=== PATIENT | male | born 1960 ===

== ENCOUNTER 2023-05-29 10:28 | Emergency (ER) | payer SELFPAY ==
[2023-05-29 10:36] VITALS: BP 175/100; PULSE 68; RESP 17; TEMP 36.8; O2SAT 98
--- NOTE | 2023-05-29 10:45 | DI.CT_ITS ---
Exam(s) CT ABDOMEN PELVIS W EXAM: CT ABDOMEN PELVIS W CLINICAL HISTORY: Jaundice,. TECHNIQUE: Imaging Protocol: Axial computed tomography images with coronal and sagittal reformatted images were created and reviewed CONTRAST MATERIAL: Intravenous: Omnipaque 350 Contrast volume:100 ml Oral: yes / no COMPARISON: No exams were available for comparison FINDINGS: ABDOMEN and PELVIS: Lung Bases: No acute findings. Liver: Normal density. No measurable mass. Gallbladder and biliary tract: Not well distended. No wall thickening. No radiodense calculus. Mil d intrahepatic biliary dilation. No extrahepatic biliary dilatation. Common bile duct measures 5 mi llimeters. Pancreas: Normal density. No abnormal calcifications or inflammatory process. No evidence of mass. Spleen: Normal. Kidneys: Normal size, contour and axis. No radiodense stones. No obstructive uropathy. No suspicious masses seen. Adrenal glands: No masses seen. Vasculature: Abdominal aorta non-dilated. Soft tissues: Unremarkable. Bladder: Mild diffuse wall thickening. No calculi.No focal mass. Bowel: Small diverticulum of the descending duodenum. Mild sigmoid diverticulosis. Normal quantity of stool. No obstruction. No bowel wall thickening. Appendix normal. Peritoneal cavity: No ascites. No focal collection or mesenteric inflammatory response. Bones: Unremarkable for age. Reproductive organs: Prostate mildly enlarged. Lymph nodes: Unremarkable. IMPRESSION:: Minimal intrahepatic biliary dilatation. No extrahepatic biliary dilatation. No visib le gallstones , abnormal gallbladder distention or wall thickening. Findings called to DOROTA Lambert provider. RADIATION DOSE DELIVERED: 1,127.31mGy.cm Total DLP DATA REPOSITORY: All CT scans at this facility are submitted to the National Radiology Data Registry (NRDR) Dose Index Registry (DIR) with the [employer] (ACR). RADIATION OPTIMIZATION: All CT scans at this facility use at least one of these dose optimization te chniques: automated exposure control; mA and/or kV adjustment per patient size (includes targeted exa ms where dose is matched to clinical indication); or iterative reconstruction.
--- NOTE | 2023-05-29 10:49 | W.ED.GENAD ---
HPI General Mode of arrival: ambulatory. Date/Time Provider Initiated Documentation: 05/29/23 10:36. Limitations to Documentation: no limitations. Information obtained by: patient, RN notes reviewed and old records reviewed. HPI Narrative: 63-year-old male presents to the ER after with a chief complaint of jaundice and itching. Patient reports that he has had midepigastric gallbladder attacks on and off since October. They are associated with some jaundice. He reports that his significant other noticed that he was yellow this morning. He also is endorsing itchiness which began yesterday. He is a daily drinker. He reports that he does drink daily did not drink this morning. He also did not take his blood pressure medication losartan 100 mg this morning either. No other significant past medical history he denies any major surgeries lung problems diabetes or heart problems. He reports darkened urine, he reports a normal bowel movement this morning. His abdomen is soft, nontender on exam and nondistended. Related Data Home Medications Medication Instructions Recorded Confirmed losartan 100 mg tablet 100 mg PO DAILY 05/29/23 05/29/23 sucralfate 1 gram tablet (Carafate) 1 g PO QACHS GERD #30 tabs 05/29/23 triamcinolone acetonide 0.1 % 1 applic topical BID PRN itching 05/29/23 topical cream #30 grams Previous Rx's Medication Instructions Recorded sucralfate 1 gram tablet (Carafate) 1 g PO QACHS GERD #30 tabs 05/29/23 triamcinolone acetonide 0.1 % 1 applic topical BID PRN itching 05/29/23 topical cream #30 grams Allergies Allergy/AdvReac Type Severity Reaction Status Date / Time No Known Allergies Allergy Unverified 05/29/23 11:17 General Stated Complaint: Abd Prob EDGARDO: 3 Review of Systems All systems reviewed & are unremarkable except as noted in HPI and below Gastrointestinal Gastrointestinal: Reports as per HPI, Reports abdominal pain (denies currently) and Reports other (Jaundice) Genitourinary Genitourinary: Reports other (Dark urine) Integumentary/Breasts Skin/Breast: Reports pruritus, Reports rash and Reports jaundice Exam Const General: cooperative, comfortable, does not appear intoxicated and well hydrated Nutritional Appearance: obese Orientation: alert, awake and oriented x3 Eyes EOM: EOM intact bilaterally Resp Effort & Inspection: normal respiratory effort and able to speak in complete sentences Auscultation: clear to auscultation bilaterally Cardio Jugular venous pressure: no JVD Rate: regular rate Rhythm: regular rhythm Heart Sounds: S1 normal and S2 normal GI Inspection: no abdominal wall ecchymosis, obesity and no striae Palpation: soft (Non-tender) Skin General skin exam: elasticity normal, excoriation, jaundice and no mottling Rashes: rashes noted (Excoriations No surround erythema or induration) diffuse truncal Course Vital Signs Vital signs: Vital Signs Temperature 36.8 C 05/29/23 10:36 Pulse 68 05/29/23 10:36 Respiratory Rate 17 05/29/23 10:36 Blood Pressure 175/100 H 05/29/23 10:36 Pulse Oximetry 98 05/29/23 10:36 Temperature 36.8 C 05/29/23 10:36 Temperature Source Oral 05/29/23 10:36 Pulse 68 05/29/23 10:36 Respiratory Rate 17 05/29/23 10:36 Blood Pressure 175/100 H 05/29/23 10:36 Blood Pressure Position Supine 05/29/23 10:36 Pulse Oximetry 98 05/29/23 10:36 Oxygen Delivery Method Room Air 05/29/23 10:36 Oxygen Flow Rate 0 05/29/23 10:36 Pain Level 99 05/29/23 10:36 Lab/Test Results Lab/Test Results: Laboratory Tests Range/Units 05/29/23 10:34 Troponin I Cancelled Medical Decision Making 63-year-old male presents to the ER with a chief complaint of jaundice. Patient reports that he has had midepigastric gallbladder attacks on and off since October. They are associated with some jaundice. He reports that his significant other noticed that he was yellow this morning. He also is endorsing itchiness which began yesterday. He is a daily drinker. He reports that he does drink daily did not drink this morning. He also did not take his blood pressure medication losartan 100 mg this morning either. No other significant past medical history he denies any major surgeries lung problems diabetes or heart problems. He reports darkened urine, he reports a normal bowel movement this morning. His abdomen is soft, nontender on exam and nondistended. Workup ordered including CBC CMP, lipase, hepatitis panel, Ethyl alcohol, urinalysis CT abdomen pelvis with contrast. Differential diagnosis includes but not limited to hepatitis, cirrhosis, cholecystitis, gallstones, choledocholithiasis. Discussed results with patient and that my suspicions are heavily on alcoholic liver cirrhosis. He verbalized understanding. Will instruct him on stopping or decreasing alcohol severely, will give him some triamcinolone cream for the itching and rash, instruct him to take Maalox as needed for GERD in lieu of the omeprazole. Losartan should be okay for hepatic impairment. Patient does not wish to follow-up with [facility]. I will place him on a care management list. Discharge instructions discussed with family and patient by ED staff. Of note patient did state to me when I did discuss to stop drinking he did state I have a 12 pack of beer at home. Patient did decline referral to [facility]. Did give him some further GI resources clued in [place] and [facility]. This text was generated using [employer] system, please disregard any oddities of phrase or misspellings. Imaging Data Radiologic Study: Imaging: CT Scan Radiologist's impression: FINDINGS: ABDOMEN and PELVIS: Lung Bases: No acute findings. Liver: Normal density. No measurable mass. Gallbladder and biliary tract: Not well distended. No wall thickening. No radiodense calculus. Mild intrahepatic biliary dilation. No extrahepatic biliary dilatation. Common bile duct measures 5 millimeters. Pancreas: Normal density. No abnormal calcifications or inflammatory process. No evidence of mass. Spleen: Normal. Kidneys: Normal size, contour and axis. No radiodense stones. No obstructive uropathy. No suspicious masses seen. Adrenal glands: No masses seen. Vasculature: Abdominal aorta non-dilated. Soft tissues: Unremarkable. Bladder: Mild diffuse wall thickening. No calculi.No focal mass. Bowel: Small diverticulum of the descending duodenum. Mild sigmoid diverticulosis. Normal quantity of stool. No obstruction. No bowel wall thickening. Appendix normal. Peritoneal cavity: No ascites. No focal collection or mesenteric inflammatory response. Bones: Unremarkable for age. Reproductive organs: Prostate mildly enlarged. Lymph nodes: Unremarkable. IMPRESSION:: Minimal intrahepatic biliary dilatation. No extrahepatic biliary dilatation. No visible gallstones , abnormal gallbladder distention or wall thickening. Findings called to Madeline Sahni, ER provider. Lab Data Lab results reviewed: Yes I reviewed the patient's lab results. Labs: 05/29/23 10:52 Urine - Reflex from Ua Urine Culture - Pending Laboratory Tests Range/Units 05/29/23 05/29/23 05/29/23 10:34 10:45 10:48 WBC (4.4-10.8) 10^3/uL 5.62 RBC (4.36-5.78) 10^6/uL 4.65 Hgb (13.5-17.5) g/dL 14.6 Hct (40.0-50.0) % 44.4 MCV (80-95) fL 96 H MCH (27.0-33.0) pg 31.4 MCHC (32.0-36.0) % 32.9 RDW (11.8-14.1) % 12.9 Plt Count (130-400) 10^3/uL 262 MPV (8.0-11.0) fL 8.9 Immature Gran % 0.4 Neutrophils % 67.7 Lymphocytes % 20.6 Monocytes % 6.6 Eosinophils % 3.6 Basophils % 1.1 Nucleated RBC % (0.0-0.3) % 0.0 Absolute Neutrophils (1.2-6.7) 10^3/uL 3.81 Absolute Lymphocytes (1.2-3.4) 10^3/uL 1.16 L Absolute Monocytes (0.1-0.8) 10^3/uL 0.37 Absolute Eosinophils (0.0-0.7) 10^3/uL 0.20 Absolute Basophils (0.0-0.2) 10^3/uL 0.06 Sodium (136-145) mmol/L 136 Potassium (3.5-5.1) mmol/L 4.2 Chloride (98-107) mmol/L 100 Carbon Dioxide (21.0-32.0) mmol/L 26.3 Anion Gap (3-11) mmol/L 9.7 BUN (7-18) mg/dL 20 H Creatinine (0.70-1.30) mg/dL 1.5 H Est GFR (CKD-EPI 2020) (mL/min/1.73m2) 51.67 Glucose (74-106) mg/dL 129 H Calcium (8.5-10.1) mg/dL 10.2 H Magnesium (1.8-2.4) mg/dL 2.1 Total Bilirubin (0.2-1.0) mg/dL 8.3 H AST (15-37) U/L 121 H ALT (16-63) U/L 300 H Alkaline Phosphatase (46-116) U/L 738 H Troponin I Cancelled Total Protein (6.4-8.2) g/dL 8.1 Albumin (3.4-5.0) g/dL 3.2 L Lipase (16-77) U/L 67 Urine Color (Yellow) Urine Clarity (Clear) Urine pH (5-8) Ur Specific Calvert (1.005-1.025) Urine Protein (Negative) mg/dL Urine Ketones (Negative) mg/dL Urine Blood (Negative) Urine Nitrite (Negative) Urine Bilirubin (Negative) Urine Urobilinogen (Up to 0.2) mg/dL Ur Leukocyte Esterase (Negative) Urine RBC (0-2) HPF Urine WBC (0-5) HPF Ur Epithelial Cells (Negative) HPF Urine Crystals (Negative) HPF Urine Bacteria (Negative) HPF Urine Casts (Negative) LPF Urine Mucus (Negative) Urine Other (Negative) Ur Culture Indicated? Urine Glucose (Negative) mg/dL Ethyl Alcohol (<10) mg/dL 3.4 Add-On Test Request DONE Range/Units 05/29/23 05/29/23 10:51 10:52 WBC (4.4-10.8) 10^3/uL RBC (4.36-5.78) 10^6/uL Hgb (13.5-17.5) g/dL Hct (40.0-50.0) % MCV (80-95) fL MCH (27.0-33.0) pg MCHC (32.0-36.0) % RDW (11.8-14.1) % Plt Count (130-400) 10^3/uL MPV (8.0-11.0) fL Immature Gran % Neutrophils % Lymphocytes % Monocytes % Eosinophils % Basophils % Nucleated RBC % (0.0-0.3) % Absolute Neutrophils (1.2-6.7) 10^3/uL Absolute Lymphocytes (1.2-3.4) 10^3/uL Absolute Monocytes (0.1-0.8) 10^3/uL Absolute Eosinophils (0.0-0.7) 10^3/uL Absolute Basophils (0.0-0.2) 10^3/uL Sodium (136-145) mmol/L Potassium (3.5-5.1) mmol/L Chloride (98-107) mmol/L Carbon Dioxide (21.0-32.0) mmol/L Anion Gap (3-11) mmol/L BUN (7-18) mg/dL Creatinine (0.70-1.30) mg/dL Est GFR (CKD-EPI 2020) (mL/min/1.73m2) Glucose (74-106) mg/dL Calcium (8.5-10.1) mg/dL Magnesium (1.8-2.4) mg/dL Total Bilirubin (0.2-1.0) mg/dL AST (15-37) U/L ALT (16-63) U/L Alkaline Phosphatase (46-116) U/L Troponin I Total Protein (6.4-8.2) g/dL Albumin (3.4-5.0) g/dL Lipase (16-77) U/L Urine Color (Yellow) Yellow Urine Clarity (Clear) Clear Urine pH (5-8) 5.5 Ur Specific Calvert (1.005-1.025) 1.020 Urine Protein (Negative) mg/dL 100 H Urine Ketones (Negative) mg/dL Negative Urine Blood (Negative) Trace-lysed H Urine Nitrite (Negative) Negative Urine Bilirubin (Negative) Large H Urine Urobilinogen (Up to 0.2) mg/dL 0.2 Ur Leukocyte Esterase (Negative) Negative Urine RBC (0-2) HPF 0-2 Urine WBC (0-5) HPF Negative Ur Epithelial Cells (Negative) HPF Rare Urine Crystals (Negative) HPF Negative Urine Bacteria (Negative) HPF Moderate Urine Casts (Negative) LPF Negative Urine Mucus (Negative) Trace Urine Other (Negative) Negative Ur Culture Indicated? Yes Urine Glucose (Negative) mg/dL Negative Ethyl Alcohol (<10) mg/dL Add-On Test Request DONE Quality:SDOH Health Related Social Needs: No Data to Display PFSH All Active Problems (Updated 05/29/23 @ 12:52 by Madeline Sahni NP) Jaundice (Acute) Alcoholic cirrhosis of liver without ascites (Acute) Social History Smoking/Tobacco Use Status: Current every day Smoking risk assessment performed?: Yes Housing: house Do you feel safe at home: Yes Discharge Plan Disposition Patient Disposition: Home Condition: Stable Discharge Details Clinical Impression: Alcoholic cirrhosis of liver without ascites, Jaundice Primary Care Provider: Unknown,Unknown ED Provider: Madeline Sahni Home Meds and New Rx's Prescriptions: New sucralfate [Carafate] 1 gram tablet 1 g PO QACHS Qty: 30 0RF Rx Instructions: Please take before meals and at bedtime as needed. triamcinolone acetonide 0.1 % cream 1 applic topical BID PRN (Reason: itching) Qty: 30 0RF Rx Instructions: Apply twice daily as needed for itching do not use longer than 7-10 days. Continued losartan 100 mg tablet 100 mg PO DAILY Patient Comments: TAKE 1 TABLET BY MOUTH DAILY FOR BLOOD PRESSURE Discontinued omeprazole 10 mg capsule,delayed release(DR/EC) 10 mg PO DAILY Discharge Instructions Instructions: Cirrhosis (ED), Alcoholic Hepatitis (ED) Additional Instructions: At this time it appears your liver is severely impaired. I do suspect that this is from the alcohol. A hepatitis panel was sent. You do need close follow-up with the GI specialist. They do have a GI specialist at [place] and a [facility]. Please return to the ER for any worsening pain, nausea vomiting, abnormal bleeding if you notice any blood in your stool or bleeding gums or feeling worse at any time. Stop drinking. Do not take any Tylenol. Do not take your omeprazole as this is metabolized in your liver as well. The losartan is okay to continue taking. Please take the other prescription medications as directed. Follow up with Gastroenterology within a week or two, primary care provider in 3-5 days. Return to ED sooner if any worsening or concerns. Increase oral fluids. Referrals: [facility] [Outside] [facility] [Outside] (Call to make an appointment) Ashley Villarreal [NURSE PRACTITIONER] - Frederick Triana [ NON-[facility] STAFF PHYSICIAN] - Manuela Parsons [ NON-[facility] STAFF PHYSICIAN] - Discharge Data Discharge Date/Time-TO BE ENTERED AT DEPARTURE: 05/29/23 13:23
[2023-05-29 10:54] LABS: Abs Immature Grans 0.02 10^3/uL (0.0-0.06); Absolute Basophil Count 0.06 10^3/uL (0.0-0.2); Absolute Lymphocyte Count 1.16 10^3/uL (1.2-3.4); Absolute Monocyte Count 0.37 10^3/uL (0.1-0.8); Absolute Neutrophil Count 3.81 10^3/uL (1.2-6.7); Basophils % 1.1; Eosinophils % 3.6; HCT 44.4 % (40.0-50.0); HGB 14.6 g/dL (13.5-17.5); Immature Grans % 0.4; Lymphocytes % 20.6; MCH 31.4 pg (27.0-33.0); MCHC 32.9 % (32.0-36.0); MCV 96 fL (80-95); MPV 8.9 fL (8.0-11.0); Monocytes % 6.6; Neutrophils % 67.7; Platelet Count 262 10^3/uL (130-400); RBC 4.65 10^6/uL (4.36-5.78); RDW 12.9 % (11.8-14.1); RDW-SD 45.8 fL; WBC 5.62 10^3/uL (4.4-10.8)
[2023-05-29 11:13] LABS: Bilirubin Large (Negative); Blood Trace-lysed (Negative); Clarity Clear (Clear); Glucose Negative (Negative); Ketones Negative (Negative); Leukocyte Esterase Negative (Negative); Nitrite Negative (Negative); Urobilinogen 0.2 mg/dL (Up to 0.2); pH 5.5 (5-8)
[2023-05-29 11:19] LABS: ALT 300 U/L (16-63); AST 121 U/L (15-37); Albumin 3.2 g/dL (3.4-5.0); Alkaline Phosphatase 738 U/L (46-116); Anion Gap 9.7 mmol/L (3-11); BUN 20 mg/dL (7-18); Bilirubin, Total 8.3 mg/dL (0.2-1.0); CO2 26.3 mmol/L (21.0-32.0); CREATININE 1.5 mg/dL (0.70-1.30); Calcium 10.2 mg/dL (8.5-10.1); Chloride 100 mmol/L (98-107); Estimated GFR 51.67 (mL/min/1.73m2); Glucose 129 mg/dL (74-106); Lipase 67 U/L (16-77); Magnesium 2.1 mg/dL (1.8-2.4); Potassium 4.2 mmol/L (3.5-5.1); Sodium 136 mmol/L (136-145); Total Protein 8.1 g/dL (6.4-8.2)
[2023-05-29] MEDS: Normal Saline 500 ML IV (11:26)
[2023-05-29 11:28] LABS: Lab Add On Test DONE
[2023-05-29 11:28] LABS: Lab Add On Test DONE
[2023-05-29 11:37] LABS: RBC 0-2 HPF (0-2); WBC Negative HPF (0-5)
[2023-05-29 11:38] LABS: Bacteria Moderate HPF (Negative); C & S Indicated? Yes; Casts Negative LPF (Negative); Crystals Negative HPF (Negative); Epithelial Cells Rare HPF (Negative); Mucus Trace (Negative); Other Cells Negative (Negative)
[2023-05-29 11:42] LABS: ETHANOL BLOOD 3.4 mg/dL (<10)
[2023-05-29] MEDS: Omnipaque 350 MG/ML 500 ML BTL-Imaging package IJ (12:01)
[2023-05-29] MEDS: Normal Saline - Diluent 50 ML VIAL IJ (12:02)
--- NOTE | 2023-05-29 12:47 | NUR.NOTE ---
Nursing Note: PT needs care management for follow up with GI/ cirrohis. Haylie, ED
[2023-05-29 12:52] LABS: PTT Activated 26.9 sec (23.6-32.8); Prothrombin Time 10.2 sec (9.1-11.1)
[2023-05-29 13:21] VITALS: PULSE 101; RESP 18; TEMP 37.1; O2SAT 96
[2023-06-01 16:31] LABS: Hepatitis A Antibody IgM Negative (Negative); Hepatitis B Core Antibody Negative (Negative); Hepatitis B surface Ag Negative (Negative); Hepatitis C Ab w Rflx HCV PCR Negative (Negative)
--- NOTE | 2023-06-04 15:34 | NUR.NOTE ---
Patient called stating needs a referral to go to [facility]; for alcoholic hepatitis, cirrhosis; ABNER. This was given to Care Management to be done. Nursing Note:
== END 2023-05-29 13:23 | disposition home or self-care (01) ==
PROVIDERS: Emergency Provider Registered Nurse Emergency
DX: R17 Unspecified jaundice (principal); L29.9 Pruritus, unspecified; K70.30 Alcoholic cirrhosis of liver without ascites; I10 Essential (primary) hypertension; F10.10 Alcohol abuse, uncomplicated; Y90.0 Blood alcohol level of less than 20 mg/100 ml
CPT/HCPCS: 80053; 83690; 86704; 86709; 86803; 87340; 96360; 99285; 74177; 80320; 81003; 81015; 83735; 84484; 85025; 85610; 85730; 87086; 99284

== ENCOUNTER → 2025-03-15 14:29 | Outpatient (BNVA) | payer MEDICARE, SELFPAY | PROVIDERS: PCP Physician Assistant; Referring Provider Physician Assistant; Visit Provider Surgery | DX: Z12.11 Encounter for screening for malignant neoplasm of colon (principal); R19.5 Other fecal abnormalities | CPT/HCPCS: S0285 ==

== ENCOUNTER 2025-03-23 06:09 | Day surgery (SDC) | payer MEDICARE, SELFPAY ==
[2025-03-23 06:20] VITALS: BP 146/83; PULSE 60; RESP 16; TEMP 36.5; O2SAT 98
[2025-03-23] MEDS: Lactated Ringers 1,000 ML 80 ML IV (06:47)
--- NOTE | 2025-03-23 07:14 | W.ANESPRE ---
General Info Date of Service Date Performed: 03/23/25 Height: 5 ft 10 in Weight: 106 kg Body Mass Index (BMI): 33.5 Surgical Procedure: Operation Date: 03/23/25 07:35 Proposed Procedure Side Surgeon p Colonoscopy Madhavi Bauer MD Meds Allergies and Home Medications Allergies Allergy/AdvReac Type Severity Reaction Status Date / Time No Known Allergies Allergy Unverified 03/23/25 06:19 Home Medication Medication Instructions Recorded losartan 100 mg tablet 100 mg PO DAILY 05/29/23 allopurinol 100 mg tablet 100 mg PO DAILY PRN 03/14/25 cyanocobalamin (vitamin B-12) 1,000 mcg PO DAILY 03/14/25 1,000 mcg capsule sildenafil 50 mg tablet 50 mg PO DAILY PRN 03/14/25 bisacodyl 5 mg tablet,delayed 5 mg PO ONCE colonscopy bowel prep 03/15/25 release (Dulcolax (bisacodyl)) #4 tabs polyethylene glycol 3350 17 238 g PO ONCE colonoscopy prep 03/15/25 gram/dose oral powder #238 grams Current Visit Medications: Current Medications Generic Name Dose Route Start Last Admin Trade Name Freq PRN Reason Stop Dose Admin Ringer's Solution 1,000 mls @ 80 mls/hr 03/23/25 06:00 03/23/25 06:47 IV 03/23/25 23:59 80 mls/hr INFUSION DASHA Administration IV Miscellaneous Supplies 1 each 03/23/25 06:00 Iv Access IV 03/23/25 23:59 DIRECTED DASHA Sodium Biphosphate/Sodium Phosphate 133 ml 03/23/25 06:00 Na Phosphate Enema-Adult 133 Ml Btl WA 03/23/25 23:59 DIRECTED PRN Sodium Chloride 0 ml 03/23/25 06:00 Normal Saline Flush 10 Ml Syr IV 03/23/25 23:59 PRN PRN Sodium Chloride 0 ml 03/23/25 06:00 Normal Saline 10 Ml Vial IJ 03/23/25 23:59 DIRECTED PRN Sterile Water 0 ml 03/23/25 06:00 Water,Injection,Sterile 10 Ml Vial IJ 03/23/25 23:59 DIRECTED PRN PFSH Active Problems Active Problems: Problem Status Onset Code Positive colorectal cancer screening using Cologuard test Acute R19.5 Diastasis recti Acute M62.08 Erectile dysfunction Acute N52.9 Chewing tobacco dependence Acute F17.220 GERD without esophagitis Acute K21.9 Cobalamin deficiency Acute E53.8 Acquired hypothyroidism Acute E03.9 Hypertensive disorder Chronic I10 Osteoarthritis of left patellofemoral joint Acute M17.12 Simple obesity Acute E66.9 Medical History Medical History Gout Impaired fasting glucose Traumatic dislocation of acromioclavicular joint Anterior dislocation of shoulder right Surgical History Surgical History History of esophagogastroduodenoscopy (EGD) (~07/2023) Tobacco Smoking/Tobacco Use Status: Current every day Tobacco Type: smokeless tobacco Substance Use Substance use type: does not use Vital Signs and Lab Results Vital Signs Most Recent Vital Signs in EMR: Most Recent Vital Signs Temp Pulse Resp BP Pulse Ox 36.5 C 60 16 146/83 H 98 03/23/25 06:20 03/23/25 06:20 03/23/25 06:20 03/23/25 06:20 03/23/25 06:20 Anesthesia Assessment and Plan Anesthesia History Personal History: No History of Anesthesia Complications Family History: No Family History of Anesthesia Complications Exercise Tolerance Exercise Tolerance: Metabolic Equivalents>4 Pertinent Negatives Pertinent Negatives: No Symptoms of GERD, No Major Cardiovascular Symptoms or Complaints and No Major Pulmonary Symptoms or Complaints Cardiac & Pulmonary Exam Cardiac Exam: Normal S1/S2 Heart Sounds Pulmonary Exam: Clear Bilateral Breath Sounds Implantable Cardiac Device Does patient have a Pacemaker or an ICD?: No Airway Exam Known Difficult Airway: No Mallampati Class: 4 Mouth Opening: Normal (> 3cm) Thyromental Distance: Less than 3 cm Facial Hair: Full Tamayo Neck Range of Motion: Limited ROM Neck Circumference: Normal Teeth Condition: Loose or Chipped (some broken teeth, none loose or fragile) ASA Classification ASA Score: ASA 2 Emergency Case?: No NPO Status NPO Status: NPO Clears >2 hours, Solids >8 hours Anesthesia Plan Resuscitation Status: Full Code Anesthesia Technique: General Anesthesia Airway Planned: Natural Airway Monitors Used: Standard Monitors
[2025-03-23 07:17] VITALS: BMI 33.5
--- NOTE | 2025-03-23 07:55 | W.PM.DSUDISC ---
Date of service: 03/23/25 Discharge Plan Disposition Patient Disposition: Home Condition: Stable Discharge Details Reason For Visit: colonoscopy Attending Provider: Madhavi Bauer Primary Care Provider: Maryjane Okeefe Home Meds and New Rx's Prescriptions: Continued sildenafil 50 mg tablet 50 mg PO DAILY PRN Rx Instructions: administer 30 minutes to 4 hours before activity allopurinol 100 mg tablet 100 mg PO DAILY PRN cyanocobalamin (vitamin B-12) 1,000 mcg capsule 1,000 mcg PO DAILY losartan 100 mg tablet 100 mg PO DAILY Patient Comments: TAKE 1 TABLET BY MOUTH DAILY FOR BLOOD PRESSURE Discontinued bisacodyl [Dulcolax (bisacodyl)] 5 mg tablet,delayed release (DR/EC) 5 mg PO ONCE Qty: 4 0RF Rx Instructions: take per colonoscopy instructions polyethylene glycol 3350 17 gram/dose powder 238 g PO ONCE Qty: 238 0RF Rx Instructions: take per colonoscopy instructions Discharge Instructions Additional Instructions: Normal colon and rectum today, zero polyps. Good/excellent prep. Cologuard was a false positive. Your next screening colonoscopy will be due in 10 years. Stand Alone Forms: Anesthesia Discharge Inst., Isaac Hanson (DSU), Portal Information Activity:: Activity as Tolerated Diet:: As Tolerated Discharge Orders Discharge Orders: Discharge Order (Routine); Ordered 03/23/25 Ordered By: Madhavi Bauer
--- NOTE | 2025-03-23 07:57 | W.COLOREPORT ---
Date of service: 03/23/25 Time of Service: 07:58 Colonoscopy Report Date of procedure: 03/23/25 Pre-op diagnosis general: Positive Cologuard screening test Post-op diagnosis procedure note: same (Normal colon and rectum) Procedure: Colonoscopy Surgeon: Madhavi Bauer Anesthesia Type: General:No Airway Estimated blood loss (mL): 0 Pathology: none sent Complications: None Prep: Miralax/Dulcolax (Good/excellent) Procedure Description: Informed consent was obtained and the patient was taken to the procedure area. The patient was placed in left lateral decubitus position on the procedure table. Timeout was performed. Anesthesia was induced. A lubricated colonoscope was inserted through the anus and passed to the cecum. The cecum was identified by the ileocecal valve and the appendiceal orifice. The scope was then slowly withdrawn and the colonic and rectal mucosa examined. TI intubated and examined. It appears normal. There are no colon or rectal mass lesions, polyps, AVMs. There is no inflammatory change. No diverticulosis was seen. The scope was retroflexed in the anorectal junction examined. Uncomplicated internal hemorrhoids with one tag present. Assessment and plan: Positive Colouard screening test Normal colonoscopy. Next screening colonoscopy will be due in 10 years. He is no longer a candidate for Cologuard.
[2025-03-23 07:59] VITALS: BP 120/78; PULSE 63; RESP 16; TEMP 36.2; O2SAT 97
--- NOTE | 2025-03-23 08:19 | W.ANESPOSTOP ---
Postoperative Evaluation Date, Time and Location Date Performed: 03/23/25 Time Performed: 07:59 Patient Location: Day Surgery Unit Vital Signs Most Recent Imported Vital Signs: Most Recent Vital Signs Temp Pulse Resp BP Pulse Ox 36.2 C L 63 16 120/78 97 03/23/25 07:59 03/23/25 07:59 03/23/25 07:59 03/23/25 07:59 03/23/25 07:59 Pain Score Most Recent Pain Score: Most Recent Pain Score Pain Level 0 03/23/25 07:59 Assessment Mental Status: Awake (Alert & Oriented to Patient Baseline) Airway and Respiratory Function: Patent airway with normal (patient baseline) respiratory exam Cardiovascular Function: Hemodynamically Stable Hydration Status: Adequately Hydrated Nausea & Vomiting: No Nausea or Vomiting Pain: Pt. Denies Any Pain Peripheral Nerve Block: Patient did not receive a nerve block
[2025-03-23 08:21] VITALS: BP 139/81; PULSE 53; RESP 16; TEMP 36.3; O2SAT 100
== END 2025-03-23 08:32 | disposition home or self-care (01) ==
PROVIDERS: PCP Physician Assistant; Visit Provider Surgery
PROC: 0DJD8ZZ Inspection of Lower Intestinal Tract, Via Natural or Artificial Opening Endoscopic (ICD-10-PCS; CPT 45378; principal; 2025-03-23 07:30)
DX: Z12.11 Encounter for screening for malignant neoplasm of colon (principal); R19.5 Other fecal abnormalities
CPT/HCPCS: G0121; J2003; J2704